=== PATIENT | female | born 1995 | race Two or more races ===

== ENCOUNTER 2020-05-08 16:48 | Inpatient (IN) | payer OTHER ==
[~2020-05-08] VITALS: Ht 167.6 cm; Wt 83.5 kg
[2020-05-08 18:17] LABS: BASOPHIL % 0.5 % (0-2); PLATELET COUNT 254 x10^3mcL (130-400); RED CELL DISTRIBUTION WIDTH 13.3 % (11.5-14.5)
[2020-05-08 18:31] LABS: CALCIUM 8.8 mg/dL (8.5-10.1); CARBON DIOXIDE 27.8 mmol/L (21-32); CHLORIDE SERUM 103 mmol/L (98-107); CREATININE SERUM 0.9 mg/dL (0.6-1.0); GFR1 > 60 mL/min; GLUCOSE SERUM 105 mg/dL (74-106); SODIUM SERUM 138 mmol/L (136-145)
[2020-05-08 18:35] LABS: ALBUMIN 3.5 g/dL (3.4-5.0); ALKALINE PHOSPHATASE 210 U/L (46-116); ALT/SGPT 367 U/L (14-59); AST/SGOT 146 U/L (15-37); BILIRUBIN TOTAL 5.61 mg/dL (0.20-1.00); LIPASE 158 IU/L (73-393); TOTAL PROTEIN, SERUM 7.3 g/dL (6.4-8.2)
[2020-05-08 19:23] LABS: microscopic required? YES; urine erythrocyte NEGATIVE (NEGATIVE)
[2020-05-08 19:58] LABS: AMPHETAMINE QUAL UR NONE DETECTED (See below)
[2020-05-08 22:10] VITALS: BP 124/72
[2020-05-08 22:48] VITALS: BP 118/74
[2020-05-08 22:51] VITALS: Ht 167.6 cm; Wt 83.5 kg
[2020-05-09 04:28] VITALS: BP 98/43
[2020-05-09 06:33] VITALS: BP 117/68
[2020-05-09 07:36] LABS: BASOPHIL % 0.4 % (0-2)
[2020-05-09 07:40] LABS: CARBON DIOXIDE 26.9 mmol/L (21-32); CHLORIDE SERUM 107 mmol/L (98-107); CREATININE SERUM 0.8 mg/dL (0.6-1.0); GFR1 > 60 mL/min; GLUCOSE SERUM 104 mg/dL (74-106); POTASSIUM SERUM 4.3 mmol/L (3.5-5.1); SODIUM SERUM 141 mmol/L (136-145)
[2020-05-09 07:53] LABS: PLATELET COUNT 219 x10^3mcL (130-400); RED CELL DISTRIBUTION WIDTH 13.9 % (11.5-14.5)
[2020-05-09 08:21] VITALS: BP 105/63
[2020-05-09 10:36] LABS: BILIRUBIN DIRECT 3.76 mg/dL (0.0-0.2); BILIRUBIN TOTAL 5.5 mg/dL (0.20-1.00); TOTAL PROTEIN, SERUM 6.6 g/dL (6.4-8.2)
[2020-05-09 10:46] LABS: ALBUMIN 3.1 g/dL (3.4-5.0)
[2020-05-09 11:54] VITALS: BP 124/75
[2020-05-09 17:17] VITALS: BP 95/45
[2020-05-09 20:18] VITALS: BP 98/56
[2020-05-10 05:55] VITALS: BP 96/53
[2020-05-10 07:16] VITALS: BP 113/69
[2020-05-10 07:45] LABS: BASOPHIL % 0.2 % (0-2); PLATELET COUNT 235 x10^3mcL (130-400); RED CELL DISTRIBUTION WIDTH 13.2 % (11.5-14.5)
[2020-05-10 08:16] LABS: CALCIUM 8.7 mg/dL (8.5-10.1); CARBON DIOXIDE 29.2 mmol/L (21-32); CHLORIDE SERUM 101 mmol/L (98-107); CREATININE SERUM 0.8 mg/dL (0.6-1.0); GFR1 > 60 mL/min; GLUCOSE SERUM 130 mg/dL (74-106); PHOSPHOROUS 3.3 mg/dL (2.5-4.9); POTASSIUM SERUM 4.1 mmol/L (3.5-5.1); SODIUM SERUM 136 mmol/L (136-145)
[2020-05-10 08:43] LABS: BILIRUBIN DIRECT 2.09 mg/dL (0.0-0.2); BILIRUBIN TOTAL 3.64 mg/dL (0.20-1.00); TOTAL PROTEIN, SERUM 6.6 g/dL (6.4-8.2)
[2020-05-10 11:41] VITALS: BP 99/63
[2020-05-10 16:46] VITALS: BP 101/53
[2020-05-10 20:08] VITALS: BP 97/46
[2020-05-11 04:52] VITALS: BP 98/54
[2020-05-11 07:01] LABS: BASOPHIL % 0.2 % (0-2); PLATELET COUNT 179 x10^3mcL (130-400)
[2020-05-11 07:34] LABS: ALKALINE PHOSPHATASE 141 U/L (46-116); ALT/SGPT 331 U/L (14-59); AST/SGOT 89 U/L (15-37); BILIRUBIN DIRECT 1.31 mg/dL (0.0-0.2); BILIRUBIN TOTAL 2.9 mg/dL (0.20-1.00); CALCIUM 8.8 mg/dL (8.5-10.1); CARBON DIOXIDE 26.9 mmol/L (21-32); CHLORIDE SERUM 104 mmol/L (98-107); CREATININE SERUM 0.7 mg/dL (0.6-1.0); GFR1 > 60 mL/min; GLUCOSE SERUM 101 mg/dL (74-106); POTASSIUM SERUM 3.5 mmol/L (3.5-5.1); SODIUM SERUM 139 mmol/L (136-145)
[2020-05-11 07:43] LABS: ALBUMIN 2.6 g/dL (3.4-5.0); TOTAL PROTEIN, SERUM 5.8 g/dL (6.4-8.2)
[2020-05-11 08:19] VITALS: BP 94/47
[2020-05-11 14:24] VITALS: BP 94/47
== END 2020-05-11 15:40 | disposition home or self-care (01) | DRG 263 ==
LOC: ED 16:48 → MU 19:31
PROVIDERS: Emergency Medicine; Internal Medicine Gastroenterology; Surgery; ADMIT Student in an Organized Health Care Education/Training Program; ATTEND Student in an Organized Health Care Education/Training Program
PROC: BF131ZZ Fluoroscopy of Gallbladder and Bile Ducts using Low Osmolar Contrast (ICD-10-PCS; 2020-05-09)
PROC: 0FT44ZZ Resection of Gallbladder, Percutaneous Endoscopic Approach (ICD-10-PCS; principal; 2020-05-09 12:15)
PROC: 0F798ZZ Dilation of Common Bile Duct, Via Natural or Artificial Opening Endoscopic (ICD-10-PCS; 2020-05-10)
PROC: BF131ZZ Fluoroscopy of Gallbladder and Bile Ducts using Low Osmolar Contrast (ICD-10-PCS; 2020-05-10)
PROC: 0FC98ZZ Extirpation of Matter from Common Bile Duct, Via Natural or Artificial Opening Endoscopic (ICD-10-PCS; 2020-05-10)
DX: K80.63 Calculus of gallbladder and bile duct with acute cholecystitis with obstruction (principal)
CPT/HCPCS: 43262; C1758; C1769; G0378; J1170; J1610; J2405; J2543; J3010; J3490; J7030; J7120; Q0092; Q9967